=== PATIENT | female | born 1960 | race Caucasian/White ===

== ENCOUNTER 2024-04-04 08:25 | Day surgery (SDC) | payer OTHER, SELFPAY ==
--- NOTE | 2024-04-03 09:05 | P.CONAN_ITS ---
Documented by User: Angelica Sanches NP 04/03/24 09:05 HPI - Anesthesia Eval Consult details Narrative: 64yo F for Colonoscopy [facility] Past Medical History Medical History Abnormal colonoscopy Hyperlipidemia Surgical History Surgical History (Updated 04/04/24 @ 10:09 by Carol Ann De Santiago RN) Hx of colonoscopy Hx of carpal tunnel repair Social History Social History Are you a primary care transition mgr to a significant other at home: No Do you presently have visiting nurse or other home services: No Patient Tobacco Use Status: Former Tobacco user Meds Allergies Allergy/AdvReac Type Severity Reaction Status Date / Time No Known Allergies Allergy Verified 04/04/24 10:10 Home Medications ?Medication ?Instructions ?Recorded ?Confirmed ?Last Taken ?Type rosuvastatin 10 mg tablet 10 mg PO DAILY 04/03/24 04/04/24 Unknown History Assessment and Plan Assessment Anesthesia Assessment: Chart Reviewed Documented by User: Baldomero Arias MD 04/04/24 11:06 [facility] Past Medical History Medical History Abnormal colonoscopy Hyperlipidemia Family History Family history of problems with anesthesia: No Surgical History Surgical History (Updated 04/04/24 @ 10:09 by Carol Ann De Santiago RN) Hx of colonoscopy Hx of carpal tunnel repair History of Problems with Anesthesia: No Social History Social History Are you a primary care transition mgr to a significant other at home: No Do you presently have visiting nurse or other home services: No Patient Tobacco Use Status: Former Tobacco user Meds Allergies Allergy/AdvReac Type Severity Reaction Status Date / Time No Known Allergies Allergy Verified 04/04/24 10:10 Home Medications ?Medication ?Instructions ?Recorded ?Confirmed ?Last Taken ?Type rosuvastatin 10 mg tablet 10 mg PO DAILY 04/03/24 04/04/24 Unknown History Exam Airway Mallampati Class: II TM Dist: >3cm Neck ROM: Full Loose/Missing/Broken Teeth: No Heart: ok Lungs: ok Assessment and Plan Assessment Anesthesia Assessment: Anesthesia Plan Discussed Final Anesthetic Review Family History of Problems with Anesthesia: No History of Problems with Anesthesia: No NPO: Yes ASA Class: II Final Preanesthetic Review: No Changes in Pt Med Stat, Meds/Allgs Chart Reviewed, Consent Obtained/Reviewed and Anes Risks/Benef Reviewed Patient Risk: Low Procedure Risk: Low Anesthetic Plan Anesthetic Plan: MAC: and Agree w/ Assess. and Plan Disposition: Standard PACU
--- OUTSIDE RECORDS SUMMARY | 2024-04-04 08:42 | XMS_ITS | Clinical Summary ---
Author Organization [facility] lin Address [address] [place] [address] Care Team Providers Care Train Control Electronic Technician Name Role Phone Pcp, No Primary Care Provider [phone] Social History Tobacco Use Types Packs/Day Years Used Date Smoking Tobacco: Never Assessed Comments Unknown Sex and Gender Information Value Date Recorded Sex Assigned at Not on file Legal Sex Female 7:25 PM EST Gender Identity Not on file Sexual Orientation Not on file Plan of Treatment Health Maintenance Due Date Last Done Comments Colorectal Cancer: COLONOSCO PY Screening every 10 yrs (or Modifier) 1959 Depression: Screening Annual ly using PHQ-2/9 in Adults 18 yrs or above (or HM Modifier)([facility]) 1977 Hepatitis C Virus Infection in Adolescents and Adults: Screening (or Modifier) ([facility]) 1977 [facility] Screening Reminder: Anastasia berger for all adults ([facility]) 1977 Tobacco Smoking Cessation: i n Adults excluding Women: Behavioral and Pharmacotherapy Interventions ([facility]) 1977 DTaP/Tdap/Td Vaccines ([facility]) (1 - Tdap) 1978 Cervical Cancer Screenin 1-65 yrs of age (or Modifier) 01/14/1980 Cervical Cancer Screening: P ap every 3 yrs pts age 21-65 01/14/1980 Cervical Cancer: Pap Screeni ng with Modifier timing ([facility]) 01/14/1980 Cervical Cancer: hrHPV alone or with cotesting Pap for Pts 30-65yrs screening every 5yrs ([facility]) 01/14/1980 Colorectal Cancer Screening 45 -75 Yrs (or HM Modifier) 01/14/2004 Colorectal Cancer: FLEXIBLE SIGMOIDOSCOPY Screening every 5 yrs 01/14/2004 Colorectal Cancer: Fecal Immunochemical Test (FIT) Annually [facility] 01/14/2004 Colorectal Cancer: High-sens itivity gFOBT Screening Annually [facility] 01/14/2004 Colorectal Cancer: Stool Col oguard Screening every 3 yrs 01/14/2004 Colorectal Cancer:CT Colonog kita Screening every 5 yrs 01/14/2004 Lipid Screening: Every 5 yrs for Women aged 45+ (or HM Modifier) ([facility]) 2005 Breast Cancer: Screening Anastasia ually age 50-74 yrs (or HM Modifier)([facility]) 2009 Zoster/Shingles Vaccine Seri es Screening: Adults aged 18+ yrs (or HM Modifiers)([facility]) (1 of 2) 2009 Flu Vaccination: Yearly for ages 18mos through 64 years (or Modifier)([facility]) 09/30/2023 COVID-19 Vaccine Screening: Initial Series and Booster Status ([facility]) ( - 2023- season) 2023 Flu Vaccination: Ages 65+: Y early High Dose Recommended (or Modifier)([facility]) 01/14/2024 Osteoporosis Screening to Pr event Fractures: Women aged 65 years+ ([facility]) 01/14/2024 Pneumococcal Vaccination Scr eening: Patients 65+ yrs of age ([facility]) (1 of 1 - PCV) 01/14/2024 RSV Vaccines (1 - 1-dose 75+ series) 2034 Pneumococcal Vaccination Scr eening: Pts 0-19 & 19-64 yrs of age ([facility]) Aged Out No longer eligible based on patient's age to complete this topic Medical Devices Not on file Insurance [facility] Care Teams Train Control Electronic Technician Relationship Specialty Start Date End Date Pcp, No PCP - General Family Medicine 05/30/20
[2024-04-04 09:34] VITALS: BMI 25.1
[2024-04-04] MEDS: Lactated Ringers 1,000 ML 100 ML IVCONT (09:46)
[2024-04-04 10:07] VITALS: BP 135/80; PULSE 72; RESP 18; TEMP 36.7; O2SAT 96
--- NOTE | 2024-04-04 10:46 | MHC.SHP ---
Pre-Procedural Eval Section A - 24 Hr Update-Section A only Date of Service: 04/04/24 The patient is an INPATIENT: No Changes since office visit: No Cold of Flu in the past 2 weeks, No New Medical Problems, No Changes in Medication and No Patient answered all questions The patient has been examined within 24 hours of the surgical procedure. The History & Physical has been completed within 30 days and I have reviewed it.: Yes Section B - Complete if H&P > 30 days Chief Complaint: screening Allergies: Allergies Allergy/AdvReac Type Severity Reaction Status Date / Time No Known Allergies Allergy Verified 04/04/24 10:10 Plan I have reviewed the history and physical and performed a pertinent physical examination on my patient. No changes have occurred unless specified. Time Spent With Patient Time: Total time managing care of this patient today ____ minutes.
[2024-04-04 11:24] VITALS: BP 108/64; PULSE 69; RESP 18; TEMP 36.5; O2SAT 98
[2024-04-04 11:39] VITALS: BP 152/86; PULSE 63; RESP 16; TEMP 36.3; O2SAT 100
--- NOTE | 2024-04-04 12:11 | OP_ITS ---
DATE OF SERVICE: 04/04/2024 SURGEON: Harshil Barboza MD INDICATIONS: Colon cancer screening and prior history of adenomatous colon polyps. PREOPERATIVE DIAGNOSIS: POSTOPERATIVE DIAGNOSIS: PROCEDURE PERFORMED: Colonoscopy to the terminal ileum with snare polypectomy. ESTIMATED BLOOD LOSS: COMPLICATIONS: ANESTHESIA: Monitored anesthesia care. ASSISTANTS: SPECIMENS: DESCRIPTION OF PROCEDURE: A history and physical was performed. The risks and benefits of the procedure were explained to the patient and informed consent was obtained. The patient was placed in the left lateral decubitus position. A digital rectal exam was performed and was found to be normal. The Olympus pediatric video colonoscope was introduced into the rectum and advanced to the cecum. The cecum was identified by transillumination, palpation, and identification of ileocecal valve. Examination was performed and the scope was removed. She tolerated the procedure well and was returned to recovery area in stable condition. FINDINGS: The terminal ileum was examined and appeared normal. The visualized colonic mucosa was normal. The quality of the prep was good. Two polyps were identified. The 1st measured 7 mm and removed with a cold snare at 25 cm. The 2nd measured 10 mm and was removed with a hot snare at 20 cm. There was mild sigmoid diverticulosis. Retroflexed examination shows a small internal hemorrhoids. IMPRESSION: Colon polyps. RECOMMENDATION: Follow up the biopsy results. MD ISADORA Hines/BRUCE / [id number]
== END 2024-04-04 11:56 | disposition home or self-care (01) ==
PROVIDERS: PCP Internal Medicine; Visit Provider Internal Medicine Gastroenterology
PROC: 0DJD8ZZ Inspection of Lower Intestinal Tract, Via Natural or Artificial Opening Endoscopic (ICD-10-PCS; CPT 45378; principal; 2024-04-04 11:00)
DX: Z12.11 Encounter for screening for malignant neoplasm of colon (principal); Z86.0101 Personal history of adenomatous and serrated colon polyps; D12.5 Benign neoplasm of sigmoid colon; K57.30 Diverticulosis of large intestine without perforation or abscess without bleeding; K64.8 Other hemorrhoids; E78.5 Hyperlipidemia, unspecified; Z79.899 Other long term (current) drug therapy
CPT/HCPCS: 45385; 88305; J2003; J2704